=== PATIENT | male | born 1985 | race Caucasian/White ===

== ENCOUNTER 2017-08-31 06:29 | Day surgery (SDC) | payer OTHER ==
[2017-08-22 12:25] VITALS: BMI 28.8
[2017-08-31] MEDS ORDERED: oxyCODONE HCL 10 MG SUSTAINED ACTING TABLET PO STA (06:52)
[2017-08-31] MEDS ORDERED: LIDOCAINE HCL/PF 2% SDV 5ML VIAL ONE (07:25)
[2017-08-31] MEDS ORDERED: DEXAMETHASONE SOD PHOSPHATE 4 MG/1 ML VIAL ONE (07:25)
[2017-08-31] MEDS ORDERED: PROPOFOL 20 ML ONE ×11 (07:25→09:58)
[2017-08-31] MEDS ORDERED: ONDANSETRON 4 MG/2 ML VIAL ONE (07:25)
[2017-08-31] MEDS ORDERED: fentaNYL CITRATE 250 MCG/5 ML VIAL ONE (07:25)
[2017-08-31] MEDS ORDERED: MIDAZOLAM HCL 2 MG/2 ML SINGLE DOSE VIAL ONE ×2 (07:26→08:41)
[2017-08-31] MEDS ORDERED: SUCCINYLCHOLINE CHLORIDE 200 MG/10 ML VIAL ONE (07:26)
[2017-08-31] MEDS ORDERED: ROCURONIUM BROMIDE 50 MG/5 ML VIAL ONE (07:26)
[2017-08-31] MEDS ORDERED: LIDOCAINE HCL 1%, 10 MG/ML (20ML VIAL) ONE (07:40)
[2017-08-31] MEDS ORDERED: LIDOCAINE 1%/EPI 1:100000 (20 ML MULTI DOSE VIAL) ONE (07:40)
[2017-08-31] MEDS ORDERED: THROMBIN (BOVINE) 5,000 UNIT VIAL TP ONE ×2 (07:42→09:45)
[2017-08-31] MEDS ORDERED: LIDOCAINE 1%/EPI 1:100000 (50 ML MULTI DOSE VIAL) INF ONE (09:00)
[2017-08-31] MEDS ORDERED: HYDROmorphone HCL/PF 1 MG/ML VIAL (FOR PYXIS CHARGING ONLY) ONE (09:08)
[2017-08-31] MEDS ORDERED: GELATIN SPONGE,ABSORBABLE 1 GM PACKET TP ONE (09:46)
--- NOTE | 2017-08-31 10:56 | HP ---
History & Physical Update - History History: No Change - Physical Physical: No Change - Assessment Assessment: No Change - Plan Plan: No Change
[2017-08-31] MEDS ORDERED: oxyCODONE HCL 5 MG TABLET PO PRN (10:58)
[2017-08-31] MEDS ORDERED: ONDANSETRON 4 MG/2 ML VIAL IVPUSH PRN (10:58)
--- NOTE | 2017-08-31 10:58 | OP ---
Operative Note - Note: Operative Date: 08/31/17 Pre-Operative Diagnosis: Cervical stenosis with raiculopathy Operation: ACDF C3/4, C4/5 Post-Operative Diagnosis: Same as Pre-op Surgeon: Felice Leo [employer] Specialist: Carlos Loya Anesthesiologist/TURRET PRESS OPERATOR: Cole Roy Anesthesia: General Estimated Blood Loss (mls): 20 Fluid Volume Replaced (mls): 700 Operative Report Dictated: Yes
--- NOTE | 2017-08-31 10:59 | SURG ---
Surgery Casino Dealer Note Casino Dealer: Carlos Loya PA-C Date of Service: 08/31/17 Diagnosis: Cervical stensosis Procedure: Anterior cervical discectomy / fusion C3/4, C4/5, neuromonitoring, allograft implant x2 I was present for the entirety of the operative procedure. For further detail, please refer to operative report. Visit type - Case Type Case Type: Scheduled Admission - New patient This patient is new to me today: Yes Date on this admission: 08/31/17
[2017-08-31] MEDS ORDERED: LACTATED RINGERS SOLUTION 1,000 ML IV SCH (11:00)
[2017-08-31] MEDS ORDERED: ACETAMINOPHEN 1000 MG/100 ML VIAL (NON FORMULARY) IVPB ONE (11:04)
[2017-08-31] MEDS ORDERED: diazePAM 5 MG TABLET PO ONE (11:04)
[2017-08-31] MEDS ORDERED: diazePAM 5 MG TABLET ONE (11:05)
[2017-08-31] MEDS ORDERED: ACETAMINOPHEN INJECTION 100 ML IVPB ONE (11:05)
[2017-08-31] MEDS ORDERED: oxyCODONE HCL 5 MG TABLET ONE ×2 (12:31→13:01)
--- NOTE | 2017-08-31 13:52 | OP ---
DATE OF OPERATION: 08/31/2017 PREOPERATIVE DIAGNOSIS: Cervical stenosis, C3-C4, C4-C5. POSTOPERATIVE DIAGNOSIS: Cervical stenosis, C3-C4, C4-C5. PROCEDURE PERFORMED: 1. Anterior cervical diskectomy and fusion, C3-C4. 2. Anterior cervical diskectomy and fusion, C4-C5. 3. Placement of instrumentation, C3-C5. 4. Placement of prosthetic cages, C3-C4, C4-C5. SURGEON: Felice Leo MD FIRE LOSS PREVENTION ENGINEER: ALCIIA Singh ESTIMATED BLOOD LOSS: 50 mL. IV FLUIDS: Per Anesthesia. ANESTHESIA: General. COMPLICATIONS: None. DISPOSITION: The patient was brought to the PACU in stable condition. INDICATIONS FOR SURGERY: The patient is a 32-year-old gentleman who was involved in an accident as a result of which he began to have pain in his neck. X-rays and an MRI were completed which noted that he had cervical stenosis with myelomalacia at the level. He also had associated weakness in his right arm. At this point, I had a discussion with the patient regarding cervical myelopathy and the stepwise deterioration in function. Surgery was recommended to prevent any further loss of neurologic function. The risks, benefits, and alternatives were discussed and the patient consented to surgery. DESCRIPTION OF PROCEDURE: The patient was brought to the operating room by the anesthesia staff. After appropriate patient identification was performed, general anesthesia was administered. Appropriate anesthetic lines were placed. SCDs were placed on the patient. He was placed supine on the OR bed with his arms tucked in at the side. A shoulder roll was taped underneath his neck to extend his neck to the point that he can tolerate in the preoperative holding area. A needle was taped onto his neck to guera off the C3-C4 and C4-C5 segments. X-ray was taken to confirm this was correct. The needle was removed and 10 mL of lidocaine with epinephrine were injected into his neck at this time. His neck was prepped and draped in a sterile manner. At this point, a time-out was completed. A 2-inch incision was made on the left side of her neck. Dissection was carried down to the platysma. The platysma was cut in line with the skin incision. Next, the interval between the sternocleidomastoid and the strap muscles was developed. Next, the interval between the carotid sheath, the trachea and the esophagus was developed. Peanuts were used to elevate off the prevertebral fascia. A spinal needle was placed into the C4-C5 disk. An x-ray was taken to confirm this was correct. The needle was removed and the longus colli muscle was elevated off. Retractor blades were placed and the microscope was brought in. At this point, a [place] pin was placed into the body of C3 and C5. The disks were incised and distraction was applied. At this point, a Islas was used to elevate the disks off the endplates and the disks were removed. Using a series of pituitaries, Kerrisons and curettes, a diskectomy was completed. The endplates were decorticated at this time. A cage filled with bone graft was placed into C3-C4 and C4-C5. Distraction was let go. A screw was placed into the body of C3, C4 and C5. The [place] pin was removed. AP and lateral x-rays confirmed the instrumentation to be in good position. Final tightening was performed. All bleeding was well controlled. The platysma was closed with 2-0 Vicryl suture. The skin was closed with 3-0 Monocryl suture. Dermabond was applied. Steri-Strips were applied. A sterile dressing was applied. The patient was placed supine on the OR bed, extubated in the OR and brought to the PACU in stable condition. Neema [id number] MTDD
[2017-08-31 15:35] VITALS: TEMP 98.1
[2017-08-31] MEDS ORDERED: CEFAZOLIN 2 GM/D5W 2 GM/50 ML ML IVPB ONE (17:00)
[2017-08-31 17:52] VITALS: BP 143/76; PULSE 68
--- NOTE | 2017-09-04 15:46 | PATH ---
Surgical Pathology Report Patient Name: CARLO GUNN [facility]. Rec. #: [id number] /Age/Gender: 1985 (Age: 32) / M Account: [id number] Location: [facility] AMBUL[facility]ORY Taken: 08/31/2017 Received: 08/31/2017 Reported: 09/04/2017 Physicians: Felice Leo M.D. Specimen(s) Received C3-4, C4-5 DISCS Clinical History Cervical stenosis Final Diagnosis INTERVERTEBRAL DISC, C3-4 AND C4-5, PARTIAL EXCISION: PORTIONS OF INTERVERTEBRAL DISC. Electronically Signed Kashmir Arcos M.D. Gross Description Received in formalin labeled "C3-4, C4-5 disc," is a 2.8 x 2.3 x 0.3 cm aggregate of hernandez fragments of fibrocartilaginous tissue. A outbound sales representative portion is submitted in one cassette. 09/01/201709/01/2017
== END 2017-08-31 17:40 | disposition home or self-care (01) ==
LOC: FASU 06:29
PROVIDERS: ATTEND Orthopaedic Surgery Orthopaedic Surgery of the Spine
PROC: 0RG10A0 Fusion of Cervical Vertebral Joint with Interbody Fusion Device, Anterior Approach, Anterior Column, Open Approach (ICD-10-PCS; 2017-08-31)
PROC: 0RG10K0 Fusion of Cervical Vertebral Joint with Nonautologous Tissue Substitute, Anterior Approach, Anterior Column, Open Approach (ICD-10-PCS; 2017-08-31)
PROC: 0RB30ZZ Excision of Cervical Vertebral Disc, Open Approach (ICD-10-PCS; principal; 2017-08-31 09:30)
DX: M48.02 Spinal stenosis, cervical region (principal)
CPT/HCPCS: 72050-TC; 88304-TC; 94760